=== PATIENT | male | born 1935 | race Caucasian/White ===

== ENCOUNTER 2016-12-20 11:18 | Emergency (ER) | payer MEDICARE, BC ==
[2016-12-20] MEDS ORDERED: SODIUM CHLORIDE 0.9% 1,000 ML IV ONE (12:25)
--- NOTE | 2016-12-20 12:30 | ED ---
General Adult HPI - General Chief complaint: Altered Mental Status Stated complaint: low blood pressure Time Seen by Provider: 12/20/16 12:07 Source: patient, family, RN notes reviewed Mode of arrival: wheelchair Limitations: altered mental status - History of Present Illness Initial comments: Patient is a pleasant 81-year-old male presenting with family with concerns for generalized weakness and confusion. Patient has some dementia however is more confused lately and does not notice family members at times. Patient has been somewhat weak all over. Patient has urinary urgency with limited output. Patient did see the doctor earlier today and had blood pressure 80/66 and was advised to come to the hospital. Patient has no specific complaints. Majority of history is taken from [employer]. - Related Data Home Medications Medication Instructions Recorded Confirmed Naproxen Sodium [Aleve] 220 - 440 mg PO BID PRN 12/20/16 12/20/16 Allergies Allergy/AdvReac Type Severity Reaction Status Date / Time No Known Allergies Allergy Verified 12/20/16 12:31 Review of Systems ROS Statement: Those systems with pertinent positive or pertinent negative responses have been documented in the HPI. ROS Other: All systems not noted in ROS Statement are negative. Constitutional: Denies: fever Eyes: Denies: eye pain ENT: Denies: ear pain Respiratory: Denies: cough Cardiovascular: Denies: chest pain Endocrine: Denies: fatigue Gastrointestinal: Denies: abdominal pain Genitourinary: Reports: urgency Musculoskeletal: Denies: back pain Skin: Denies: rash Neurological: Reports: weakness, confusion Past Medical History Past Medical History: Dementia, Osteoarthritis (OA) Additional Past Medical History / Comment(s): back pain History of Any Multi-Drug Resistant Organisms: None Reported Past Surgical History: Unable to Obtain Past Psychological History: No Psychological Hx Reported Smoking Status: Former smoker Past Alcohol Use History: None Reported Past Drug Use History: None Reported General Exam Limitations: altered mental status General appearance: alert, in no apparent distress Head exam: Present: atraumatic Eye exam: Present: normal appearance, PERRL, EOMI. Absent: nystagmus ENT exam: Present: normal oropharynx Neck exam: Present: normal inspection Respiratory exam: Present: normal lung sounds bilaterally Cardiovascular Exam: Present: regular rate, normal rhythm GI/Abdominal exam: Present: soft. Absent: tenderness Extremities exam: Present: normal inspection. Absent: pedal edema, calf tenderness Neurological exam: Present: alert, CN II-XII intact. Absent: motor sensory deficit Expanded Patient oriented to: Present: person, place (Patient he is in the hospital however unable to state which one or where). Absent: time Cranial nerves: EOM's Intact: Normal Sensory exam: Upper Extremity Light Touch: Normal, Lower Extremity Light Touch: Normal Motor strength exam: RUE: 5, LUE: 5, RLE: 5, LLE: 5 Psychiatric exam: Present: normal affect, normal mood Skin exam: Present: normal color Course Vital Signs 12/20/16 12/20/16 12/20/16 11:19 12:08 13:15 Temperature 99.2 F 97.8 F Pulse Rate 68 67 70 Respiratory 14 16 16 Rate Blood Pressure 128/73 149/88 O2 Sat by Pulse 96 100 100 Oximetry 12/20/16 14:22 Temperature 98.2 F Pulse Rate 93 Respiratory 16 Rate Blood Pressure 149/97 O2 Sat by Pulse 98 Oximetry EKG Findings - EKG Comments: EKG Findings:: Normal sinus rhythm 67. CO 180. QRS 1:30. QT 426. QTc 450. Normal axis. Right bundle branch block. No acute ST change. Medical Decision Making - Medical Decision Making Patient reevaluated and resting comfortably in bed. Patient requests discharge home. Family is made aware of results. Family is also made aware of x-ray results and need for follow-up for this. Family is comfortable with discharge home. - Lab Data Result diagrams: 12/20/16 12:05 12/20/16 12:05 Lab Results 12/20/16 12/20/16 12/20/16 Range/Units 12:05 12:05 12:05 WBC 5.1 (3.8-10.6) k/uL RBC 3.89 L (4.30-5.90) m/uL Hgb 11.8 L (13.0-17.5) gm/dL Hct 36.7 L (39.0-53.0) % MCV 94.5 (80.0-100.0) fL MCH 30.5 (25.0-35.0) pg MCHC 32.2 (31.0-37.0) g/dL RDW 14.0 (11.5-15.5) % Plt Count 152 (150-450) k/uL Neutrophils % 72 % Lymphocytes % 17 % Monocytes % 7 % Eosinophils % 2 % Basophils % 1 % Neutrophils # 3.6 (1.3-7.7) k/uL Lymphocytes # 0.9 L (1.0-4.8) k/uL Monocytes # 0.3 (0-1.0) k/uL Eosinophils # 0.1 (0-0.7) k/uL Basophils # 0.0 (0-0.2) k/uL PT (9.0-12.0) sec INR (<1.1) APTT (22.0-30.0) sec Sodium 141 (137-145) mmol/L Potassium 4.8 (3.5-5.1) mmol/L Chloride 109 H (98-107) mmol/L Carbon Dioxide 25 (22-30) mmol/L Anion Gap 7 mmol/L BUN 30 H (9-20) mg/dL Creatinine 1.49 H (0.66-1.25) mg/dL Est GFR (MDRD) Af Amer 55 (>60 ml/min/1.73 sqM) Est GFR (MDRD) Non-Af 45 (>60 ml/min/1.73 sqM) Glucose 82 (74-99) mg/dL Calcium 9.0 (8.4-10.2) mg/dL Total Bilirubin 0.6 (0.2-1.3) mg/dL AST 15 L (17-59) U/L ALT 24 (21-72) U/L Alkaline Phosphatase 68 (38-126) U/L Total Creatine Kinase 31 L (55-170) U/L CK-MB (CK-2) 0.4 (0.0-2.4) ng/mL CK-MB (CK-2) Rel Index 1.3 Troponin I <0.012 (0.000-0.034) ng/mL Total Protein 6.4 (6.3-8.2) g/dL Albumin 3.8 (3.5-5.0) g/dL Urine Color Urine Appearance (Clear) Urine pH (5.0-8.0) Ur Specific [place] (1.001-1.035) Urine Protein (Negative) Urine Glucose (UA) (Negative) Urine Ketones (Negative) Urine Blood (Negative) Urine Nitrite (Negative) Urine Bilirubin (Negative) Urine Urobilinogen (<2.0) mg/dL Ur Leukocyte Esterase (Negative) Urine Opiates Screen (NotDetected) Ur Oxycodone Screen (NotDetected) Urine Methadone Screen (NotDetected) Ur Propoxyphene Screen (NotDetected) Ur Barbiturates Screen (NotDetected) U Tricyclic Antidepress (NotDetected) Ur Phencyclidine Scrn (NotDetected) Ur Amphetamines Screen (NotDetected) U Methamphetamines Scrn (NotDetected) U Benzodiazepines Scrn (NotDetected) Urine Cocaine Screen (NotDetected) U Marijuana (THC) Screen (NotDetected) 12/20/16 12/20/16 Range/Units 12:05 14:16 WBC (3.8-10.6) k/uL RBC (4.30-5.90) m/uL Hgb (13.0-17.5) gm/dL Hct (39.0-53.0) % MCV (80.0-100.0) fL MCH (25.0-35.0) pg MCHC (31.0-37.0) g/dL RDW (11.5-15.5) % Plt Count (150-450) k/uL Neutrophils % % Lymphocytes % % Monocytes % % Eosinophils % % Basophils % % Neutrophils # (1.3-7.7) k/uL Lymphocytes # (1.0-4.8) k/uL Monocytes # (0-1.0) k/uL Eosinophils # (0-0.7) k/uL Basophils # (0-0.2) k/uL PT 10.0 (9.0-12.0) sec INR 1.0 (<1.1) APTT 21.0 L (22.0-30.0) sec Sodium (137-145) mmol/L Potassium (3.5-5.1) mmol/L Chloride (98-107) mmol/L Carbon Dioxide (22-30) mmol/L Anion Gap mmol/L BUN (9-20) mg/dL Creatinine (0.66-1.25) mg/dL Est GFR (MDRD) Af Amer (>60 ml/min/1.73 sqM) Est GFR (MDRD) Non-Af (>60 ml/min/1.73 sqM) Glucose (74-99) mg/dL Calcium (8.4-10.2) mg/dL Total Bilirubin (0.2-1.3) mg/dL AST (17-59) U/L ALT (21-72) U/L Alkaline Phosphatase (38-126) U/L Total Creatine Kinase (55-170) U/L CK-MB (CK-2) (0.0-2.4) ng/mL CK-MB (CK-2) Rel Index Troponin I (0.000-0.034) ng/mL Total Protein (6.3-8.2) g/dL Albumin (3.5-5.0) g/dL Urine Color Yellow Urine Appearance Clear (Clear) Urine pH 6.5 (5.0-8.0) Ur Specific [place] 1.015 (1.001-1.035) Urine Protein Trace H (Negative) Urine Glucose (UA) Negative (Negative) Urine Ketones Negative (Negative) Urine Blood Negative (Negative) Urine Nitrite Negative (Negative) Urine Bilirubin Negative (Negative) Urine Urobilinogen <2.0 (<2.0) mg/dL Ur Leukocyte Esterase Negative (Negative) Urine Opiates Screen Not Detected (NotDetected) Ur Oxycodone Screen Not Detected (NotDetected) Urine Methadone Screen Not Detected (NotDetected) Ur Propoxyphene Screen Not Detected (NotDetected) Ur Barbiturates Screen Not Detected (NotDetected) U Tricyclic Antidepress Not Detected (NotDetected) Ur Phencyclidine Scrn Not Detected (NotDetected) Ur Amphetamines Screen Not Detected (NotDetected) U Methamphetamines Scrn Not Detected (NotDetected) U Benzodiazepines Scrn Not Detected (NotDetected) Urine Cocaine Screen Not Detected (NotDetected) U Marijuana (THC) Screen Not Detected (NotDetected) - Radiology Data Radiology results: report reviewed (Computed tomography scan of the brain shows no acute process. Age-related atrophy and chronic small vessel ischemia.), image reviewed (Chest x-ray shows cardiac megaly. Chronic thickening right paratracheal stripe recommend nonemergent ultrasound or CT.) Disposition Clinical Impression: Altered mental status Disposition: HOME SELF-CARE Condition: Stable Instructions: Altered Mental Status (ED) Additional Instructions: Please do follow-up with primary care physician in the next day or 2 for recheck. Return for further change in mental status or weakness, fevers, worsening symptoms or other concerns. Referrals: Thad Romo MD [Primary Care Provider] - 1-2 days
[2016-12-20 13:25] LABS: Basophils % (A) 1 %; CH 30.6; CHCM 32.6; Eosinophils # (A) 0.1 k/uL (0-0.7); Eosinophils % (A) 2 %; HCT 36.7 % (39.0-53.0); HGB 11.8 gm/dL (13.0-17.5); Luc # (Auto) 0.09; Luc % (Auto) 2; Lymphocytes # (A) 0.9 k/uL (1.0-4.8); Lymphocytes % (A) 17 %; MCH 30.5 pg (25.0-35.0); MCHC 32.2 g/dL (31.0-37.0); MCV 94.5 fL (80.0-100.0); Mean Platelet Volume 9.5; Monocytes # (A) 0.3 k/uL (0-1.0); Monocytes % (A) 7 %; Neutrophils # (A) 3.6 k/uL (1.3-7.7); Neutrophils % (A) 72 %; RBC 3.89 m/uL (4.30-5.90); WBC 5.1 k/uL (3.8-10.6); WBC (Perox) 5.34
[2016-12-20 13:37] LABS: Potassium 4.8 mmol/L (3.5-5.1); Total Bilirubin 0.6 mg/dL (0.2-1.3); Total Protein 6.4 g/dL (6.3-8.2)
[2016-12-20 13:46] LABS: Creatine Kinase 31 U/L (55-170)
--- NOTE | 2016-12-20 13:52 | CT ---
EXAMINATION TYPE: CT brain wo con DATE OF EXAM: 12/20/2016 COMPARISON: NONE HISTORY: Altered mental status CT DLP: 1072.3 mGycm Automated exposure control for dose reduction was used. FINDINGS: There is no acute intracranial hemorrhage, mass effect, or midline shift identified. The ventricles and sulci are within normal limits in size. There is cortical atrophy present. Cerebral vascular calc ifications are present. Periventricular white matter shows patchy low attenuation. The globes are in tact and the visualized sinuses are showing inflammatory change in the ethmoid air cells, sphenoid si nus. IMPRESSION: No acute intracranial hemorrhage, mass effect, or midline shift is seen. Age-related atrophy and prob able chronic small vessel ischemia. Mild sinus disease.
--- NOTE | 2016-12-20 13:56 | XR ---
EXAMINATION TYPE: XR chest 2V DATE OF EXAM: 12/20/2016 COMPARISON: CT abdomen and pelvis October 21, 2014 HISTORY: Altered mental status per order. TECHNIQUE: Frontal and lateral views of the chest are obtained. FINDINGS: Lung volumes are present. Chronic parenchymal change is suspected. Thickening of right para tracheal stripe is noted. There is no focal air space opacity, pleural effusion, or pneumothorax see n. The cardiac silhouette size is mildly enlarged with ectatic thoracic aorta. The osseous structu res are demineralized. There is severe compression type fracture deformity in the upper lumbar spine. This is unchanged from abdominal CT October 21, 2014 at L1 level. IMPRESSION: 1. Cardiomegaly and chronic parenchymal change is suspected without acute pulmonary process. 2. Chronic thickening right paratracheal stripe may reflect prominent fat pad, prominent azygos lobe/ fissure, or thyroid goiter, other etiologies are not excluded. Consider nonemergent ultrasound or CT follow-up.
[2016-12-20 13:58] LABS: Creatine Kinase MB 0.4 ng/mL (0.0-2.4); Troponin I <0.012 ng/mL (0.000-0.034)
[2016-12-20 14:21] LABS: Appearance,Urine Clear (Clear); Bilirubin,Urine Negative (Negative); Glucose,Urine (UA) Negative (Negative); Ketones,Urine Negative (Negative); Leukocyte Esterase,Urine Negative (Negative); Nitrite,Urine Negative (Negative); PH, Urine 6.5 (5.0-8.0); Protein,Urine Trace (Negative); Specific Gravity,Urine 1.015 (1.001-1.035); UA Billing (MACRO vs. MICRO) CHEM; Urobilinogen,Urine <2.0 mg/dL (<2.0)
[2016-12-20 17:45] VITALS: BP 133/95; PULSE 72; RESP 16; TEMP 97
== END 2016-12-20 17:46 | disposition home or self-care (01) ==
LOC: EC 11:18
DX: R41.82 Altered mental status, unspecified (principal); R53.1 Weakness; R03.1 Nonspecific low blood-pressure reading; Z87.891 Personal history of nicotine dependence
CPT/HCPCS: 36415; 51798; 70450; 71020; 80053; 80306; 81003; 82550; 82553; 84484; 85025; 85610; 85730; 93005; 99285

== ENCOUNTER 2017-01-11 13:50 | Inpatient (IN) | payer MEDICARE, BC ==
[2017-01-11] MEDS ORDERED: SODIUM CHLORIDE 0.9% 1,000 ML IV ONE (14:01)
--- NOTE | 2017-01-11 14:07 | ED ---
Altered Mental Status HPI - General Chief Complaint: Altered Mental Status Stated Complaint: altered mental Time Seen by Provider: 01/11/17 13:50 Source: patient, EMS, RN notes reviewed Mode of arrival: EMS Limitations: altered mental status - History of Present Illness Initial Comments: This 81-year-old male was brought in by EMS for evaluation of altered mental status. Patient was found upon awaking earlier today to be confused is normally awake alert oriented 4 hours only alert and oriented 1. No reports of fever no reports of trauma he has a cough or phlegm possibly green colored. No new medications. MD Complaint: altered mental status - Related Data Home Medications Medication Instructions Recorded Confirmed Naproxen Sodium [Aleve] 440 - 660 mg PO BID PRN 12/20/16 01/11/17 Allergies Allergy/AdvReac Type Severity Reaction Status Date / Time No Known Allergies Allergy Verified 12/20/16 12:31 Review of Systems ROS Statement: Those systems with pertinent positive or pertinent negative responses have been documented in the HPI. ROS Other: All systems not noted in ROS Statement are negative. Past Medical History Past Medical History: Dementia, Osteoarthritis (OA) Additional Past Medical History / Comment(s): back pain History of Any Multi-Drug Resistant Organisms: None Reported Past Surgical History: Unable to Obtain Past Psychological History: No Psychological Hx Reported Smoking Status: Former smoker Past Alcohol Use History: None Reported Past Drug Use History: None Reported General Exam - General Exam Comments Initial Comments: This is a well-developed well-nourished awake alert but confused male Limitations: altered mental status General appearance: alert, lethargic Head exam: Present: atraumatic, normocephalic, normal inspection Eye exam: Present: normal appearance, PERRL, EOMI. Absent: scleral icterus, conjunctival injection, periorbital swelling ENT exam: Present: mucous membranes dry Neck exam: Present: normal inspection. Absent: tenderness, meningismus, lymphadenopathy Respiratory exam: Present: normal lung sounds bilaterally. Absent: respiratory distress, wheezes, rales, rhonchi, stridor Cardiovascular Exam: Present: regular rate, normal rhythm, normal heart sounds. Absent: systolic murmur, diastolic murmur, rubs, gallop, clicks GI/Abdominal exam: Present: soft, normal bowel sounds. Absent: distended, tenderness, guarding, rebound, rigid Extremities exam: Present: normal inspection, full ROM, normal capillary refill. Absent: tenderness, pedal edema, joint swelling, calf tenderness Back exam: Present: normal inspection Neurological exam: Present: alert, altered, CN II-XII intact Psychiatric exam: Present: flat affect Skin exam: Present: warm, dry, intact, normal color. Absent: rash Course Vital Signs 01/11/17 13:57 Temperature 97.1 F L Pulse Rate 78 Respiratory 18 Rate Blood Pressure 170/110 O2 Sat by Pulse 97 Oximetry - Reevaluation(s) Reevaluation #1: 01/11/17 16:10 I did discuss the findings with the caregiver and a niece. Patient has been coughing up green phlegm he is less responsive than usual per the caregiver. Medical Decision Making - Medical Decision Making I did discuss findings with the patient's caregiver and knees. Patient will be admitted for evaluation of altered mental status he does demonstrate evidence of bronchitis dehydration. - Lab Data Result diagrams: 01/11/17 14:16 01/11/17 14:16 Lab Results 01/11/17 01/11/17 01/11/17 Range/Units 14:08 14:16 14:16 WBC (3.8-10.6) k/uL RBC (4.30-5.90) m/uL Hgb (13.0-17.5) gm/dL Hct (39.0-53.0) % MCV (80.0-100.0) fL MCH (25.0-35.0) pg MCHC (31.0-37.0) g/dL RDW (11.5-15.5) % Plt Count (150-450) k/uL Neutrophils % % Lymphocytes % % Monocytes % % Eosinophils % % Basophils % % Neutrophils # (1.3-7.7) k/uL Lymphocytes # (1.0-4.8) k/uL Monocytes # (0-1.0) k/uL Eosinophils # (0-0.7) k/uL Basophils # (0-0.2) k/uL PT (9.0-12.0) sec INR (<1.1) APTT (22.0-30.0) sec Sodium (137-145) mmol/L Potassium (3.5-5.1) mmol/L Chloride (98-107) mmol/L Carbon Dioxide (22-30) mmol/L Anion Gap mmol/L BUN (9-20) mg/dL Creatinine (0.66-1.25) mg/dL Est GFR (MDRD) Af Amer (>60 ml/min/1.73 sqM) Est GFR (MDRD) Non-Af (>60 ml/min/1.73 sqM) Glucose (74-99) mg/dL POC Glucose (mg/dL) 84 (75-99) mg/dL POC Glu [employer] ID Chanelle Barone Plasma Lactic Acid Miguel Angel 1.9 (0.7-2.0) mmol/L Calcium (8.4-10.2) mg/dL Magnesium (1.6-2.3) mg/dL Total Bilirubin (0.2-1.3) mg/dL AST (17-59) U/L ALT (21-72) U/L Alkaline Phosphatase (38-126) U/L Ammonia <9 (<30) umol/L Total Creatine Kinase 121 (55-170) U/L CK-MB (CK-2) 1.2 (0.0-2.4) ng/mL CK-MB (CK-2) Rel Index 1.0 Troponin I <0.012 (0.000-0.034) ng/mL Total Protein (6.3-8.2) g/dL Albumin (3.5-5.0) g/dL Urine Color Urine Appearance (Clear) Urine pH (5.0-8.0) Ur Specific [place] (1.001-1.035) Urine Protein (Negative) Urine Glucose (UA) (Negative) Urine Ketones (Negative) Urine Blood (Negative) Urine Nitrite (Negative) Urine Bilirubin (Negative) Urine Urobilinogen (<2.0) mg/dL Ur Leukocyte Esterase (Negative) Urine RBC (0-5) /hpf Urine WBC (0-5) /hpf Amorphous Sediment (None) /hpf Hyaline Casts (0-2) /lpf Urine Mucus (None) /hpf Urine Opiates Screen (NotDetected) Ur Oxycodone Screen (NotDetected) Urine Methadone Screen (NotDetected) Ur Propoxyphene Screen (NotDetected) Ur Barbiturates Screen (NotDetected) U Tricyclic Antidepress (NotDetected) Ur Phencyclidine Scrn (NotDetected) Ur Amphetamines Screen (NotDetected) U Methamphetamines Scrn (NotDetected) U Benzodiazepines Scrn (NotDetected) Urine Cocaine Screen (NotDetected) U Marijuana (THC) Screen (NotDetected) 01/11/17 01/11/17 01/11/17 Range/Units 14:16 14:16 14:16 WBC 6.3 (3.8-10.6) k/uL RBC 4.12 L (4.30-5.90) m/uL Hgb 12.4 L (13.0-17.5) gm/dL Hct 38.1 L (39.0-53.0) % MCV 92.4 (80.0-100.0) fL MCH 30.1 (25.0-35.0) pg MCHC 32.6 (31.0-37.0) g/dL RDW 14.0 (11.5-15.5) % Plt Count 177 (150-450) k/uL Neutrophils % 75 % Lymphocytes % 15 % Monocytes % 7 % Eosinophils % 2 % Basophils % 1 % Neutrophils # 4.7 (1.3-7.7) k/uL Lymphocytes # 0.9 L (1.0-4.8) k/uL Monocytes # 0.4 (0-1.0) k/uL Eosinophils # 0.1 (0-0.7) k/uL Basophils # 0.0 (0-0.2) k/uL PT 10.3 (9.0-12.0) sec INR 1.0 (<1.1) APTT 22.2 (22.0-30.0) sec Sodium 142 (137-145) mmol/L Potassium 4.8 (3.5-5.1) mmol/L Chloride 110 H (98-107) mmol/L Carbon Dioxide 21 L (22-30) mmol/L Anion Gap 11 mmol/L BUN 29 H (9-20) mg/dL Creatinine 1.20 (0.66-1.25) mg/dL Est GFR (MDRD) Af Amer >60 (>60 ml/min/1.73 sqM) Est GFR (MDRD) Non-Af 58 (>60 ml/min/1.73 sqM) Glucose 99 (74-99) mg/dL POC Glucose (mg/dL) (75-99) mg/dL POC Glu [employer] ID Plasma Lactic Acid [place] (0.7-2.0) mmol/L Calcium 8.9 (8.4-10.2) mg/dL Magnesium 2.4 H (1.6-2.3) mg/dL Total Bilirubin 0.8 (0.2-1.3) mg/dL AST 23 (17-59) U/L ALT 32 (21-72) U/L Alkaline Phosphatase 82 (38-126) U/L Ammonia (<30) umol/L Total Creatine Kinase (55-170) U/L CK-MB (CK-2) (0.0-2.4) ng/mL CK-MB (CK-2) Rel Index Troponin I (0.000-0.034) ng/mL Total Protein 6.2 L (6.3-8.2) g/dL Albumin 3.7 (3.5-5.0) g/dL Urine Color Urine Appearance (Clear) Urine pH (5.0-8.0) Ur Specific [place] (1.001-1.035) Urine Protein (Negative) Urine Glucose (UA) (Negative) Urine Ketones (Negative) Urine Blood (Negative) Urine Nitrite (Negative) Urine Bilirubin (Negative) Urine Urobilinogen (<2.0) mg/dL Ur Leukocyte Esterase (Negative) Urine RBC (0-5) /hpf Urine WBC (0-5) /hpf Amorphous Sediment (None) /hpf Hyaline Casts (0-2) /lpf Urine Mucus (None) /hpf Urine Opiates Screen (NotDetected) Ur Oxycodone Screen (NotDetected) Urine Methadone Screen (NotDetected) Ur Propoxyphene Screen (NotDetected) Ur Barbiturates Screen (NotDetected) U Tricyclic Antidepress (NotDetected) Ur Phencyclidine Scrn (NotDetected) Ur Amphetamines Screen (NotDetected) U Methamphetamines Scrn (NotDetected) U Benzodiazepines Scrn (NotDetected) Urine Cocaine Screen (NotDetected) U Marijuana (THC) Screen (NotDetected) 01/11/17 Range/Units 15:04 WBC (3.8-10.6) k/uL RBC (4.30-5.90) m/uL Hgb (13.0-17.5) gm/dL Hct (39.0-53.0) % MCV (80.0-100.0) fL MCH (25.0-35.0) pg MCHC (31.0-37.0) g/dL RDW (11.5-15.5) % Plt Count (150-450) k/uL Neutrophils % % Lymphocytes % % Monocytes % % Eosinophils % % Basophils % % Neutrophils # (1.3-7.7) k/uL Lymphocytes # (1.0-4.8) k/uL Monocytes # (0-1.0) k/uL Eosinophils # (0-0.7) k/uL Basophils # (0-0.2) k/uL PT (9.0-12.0) sec INR (<1.1) APTT (22.0-30.0) sec Sodium (137-145) mmol/L Potassium (3.5-5.1) mmol/L Chloride (98-107) mmol/L Carbon Dioxide (22-30) mmol/L Anion Gap mmol/L BUN (9-20) mg/dL Creatinine (0.66-1.25) mg/dL Est GFR (MDRD) Af Amer (>60 ml/min/1.73 sqM) Est GFR (MDRD) Non-Af (>60 ml/min/1.73 sqM) Glucose (74-99) mg/dL POC Glucose (mg/dL) (75-99) mg/dL POC Glu [employer] Operator ID Plasma Lactic Acid [place] (0.7-2.0) mmol/L Calcium (8.4-10.2) mg/dL Magnesium (1.6-2.3) mg/dL Total Bilirubin (0.2-1.3) mg/dL AST (17-59) U/L ALT (21-72) U/L Alkaline Phosphatase (38-126) U/L Ammonia (<30) umol/L Total Creatine Kinase (55-170) U/L CK-MB (CK-2) (0.0-2.4) ng/mL CK-MB (CK-2) Rel Index Troponin I (0.000-0.034) ng/mL Total Protein (6.3-8.2) g/dL Albumin (3.5-5.0) g/dL Urine Color Yellow Urine Appearance Clear (Clear) Urine pH 5.5 (5.0-8.0) Ur Specific [place] 1.022 (1.001-1.035) Urine Protein 1+ H (Negative) Urine Glucose (UA) Negative (Negative) Urine Ketones 1+ H (Negative) Urine Blood Trace H (Negative) Urine Nitrite Negative (Negative) Urine Bilirubin Negative (Negative) Urine Urobilinogen 2.0 (<2.0) mg/dL Ur Leukocyte Esterase Negative (Negative) Urine RBC 5 (0-5) /hpf Urine WBC 2 (0-5) /hpf Amorphous Sediment Rare H (None) /hpf Hyaline Casts 3 H (0-2) /lpf Urine Mucus Rare H (None) /hpf Urine Opiates Screen Not Detected (NotDetected) Ur Oxycodone Screen Not Detected (NotDetected) Urine Methadone Screen Not Detected (NotDetected) Ur Propoxyphene Screen Not Detected (NotDetected) Ur Barbiturates Screen Not Detected (NotDetected) U Tricyclic Antidepress Not Detected (NotDetected) Ur Phencyclidine Scrn Not Detected (NotDetected) Ur Amphetamines Screen Not Detected (NotDetected) U Methamphetamines Scrn Not Detected (NotDetected) U Benzodiazepines Scrn Not Detected (NotDetected) Urine Cocaine Screen Not Detected (NotDetected) U Marijuana (THC) Screen Not Detected (NotDetected) - EKG Data -: EKG Interpreted by Mo EKG shows normal: sinus rhythm (Sinus rhythm rate is 77 SD interval of 144 QRS 126 daily since QTC of 426/42 right bundle-branch block pattern no acute ST-T wave changes.) - Radiology Data Radiology results: report reviewed (I did review the imaging and reports no acute findings.), image reviewed Disposition Clinical Impression: Altered mental status, Delirium due to general medical condition, Pneumonitis, Bronchitis, Dehydration Disposition: ADMITTED IP TO THIS [facility] Condition: Stable Referrals: Thad Romo MD [Primary Care Provider] - 1-2 days
[2017-01-11 14:08] LABS: Glucose,Whole Blood 84 mg/dL (75-99)
[2017-01-11 14:37] LABS: Basophils % (A) 1 %; CH 30.5; CHCM 33.2; Eosinophils # (A) 0.1 k/uL (0-0.7); Eosinophils % (A) 2 %; HCT 38.1 % (39.0-53.0); HDW 2.63; HGB 12.4 gm/dL (13.0-17.5); Luc # (Auto) 0.13; Luc % (Auto) 2; Lymphocytes # (A) 0.9 k/uL (1.0-4.8); Lymphocytes % (A) 15 %; MCH 30.1 pg (25.0-35.0); MCHC 32.6 g/dL (31.0-37.0); MCV 92.4 fL (80.0-100.0); Mean Platelet Volume 9.8; Monocytes # (A) 0.4 k/uL (0-1.0); Monocytes % (A) 7 %; Neutrophils # (A) 4.7 k/uL (1.3-7.7); Neutrophils % (A) 75 %; RBC 4.12 m/uL (4.30-5.90); WBC 6.3 k/uL (3.8-10.6)
--- NOTE | 2017-01-11 14:39 | CT ---
EXAMINATION TYPE: CT brain wo con DATE OF EXAM: 01/11/2017 COMPARISON: 12/20/16 HISTORY: Pain CT DLP: 1145.[address] of the brain was performed. The ventricles, basal cisterns and sulci overlying the cerebral convexities demonstrate moderate enla rgement. There is no evidence for intracranial hemorrhage or sulcal effacement. There is decreased attenuation about the periventricular white matter and deep white matter of both c erebral hemispheres, compatible with chronic small vessel ischemia. Differential diagnosis does inclu de demyelination. No mass effects are seen.No midline shift. Osseous calvarium is intact. Chronic sinusitis. If symptoms persist consider MRI. IMPRESSION: 1. Age related atrophic and chronic small vessel ischemic change without acute intracranial process s een at this time.
[2017-01-11 14:46] LABS: ALT 32 U/L (21-72); AST 23 U/L (17-59); Alkaline Phosphatase 82 U/L (38-126); Anion Gap 11 mmol/L; Blood Urea Nitrogen 29 mg/dL (9-20); Calcium 8.9 mg/dL (8.4-10.2); Carbon Dioxide 21 mmol/L (22-30); Chloride 110 mmol/L (98-107); Glucose 99 mg/dL (74-99); Magnesium 2.4 mg/dL (1.6-2.3); Non-African American GFR(MDRD) 58 (>60 ml/min/1.73 sqM); Partial Thromboplastin Time 22.2 sec (22.0-30.0); Potassium 4.8 mmol/L (3.5-5.1); Prothrombin Time 10.3 sec (9.0-12.0); Sodium 142 mmol/L (137-145); Total Bilirubin 0.8 mg/dL (0.2-1.3); Total Protein 6.2 g/dL (6.3-8.2)
[2017-01-11 14:55] LABS: Creatine Kinase 121 U/L (55-170)
[2017-01-11 14:57] LABS: Ammonia <9 umol/L (<30)
[2017-01-11 15:08] LABS: Creatine Kinase MB 1.2 ng/mL (0.0-2.4); Troponin I <0.012 ng/mL (0.000-0.034)
--- NOTE | 2017-01-11 15:10 | XR ---
EXAMINATION TYPE: XR chest 2V DATE OF EXAM: 01/11/2017 COMPARISON: 12/20/2016 HISTORY: Shortness of breath TECHNIQUE: Frontal and lateral views of the chest are obtained. FINDINGS: Scattered senescent parenchymal changes noted. Hyperinflation compatible with COPD. No evidence for infiltrate. No evidence for atelectasis. Heart size is stable. Mediastinal structures are stable and grossly unremarkable. No evidence for hilar prominence. Degenerative changes dorsal spine. IMPRESSION: 1. No evidence for acute pulmonary disease.
[2017-01-11 15:18] LABS: Amorphous Sediment,Urine Rare /hpf; Appearance,Urine Clear (Clear); Bilirubin,Urine Negative (Negative); Glucose,Urine (UA) Negative (Negative); Ketones,Urine 1+ (Negative); Leukocyte Esterase,Urine Negative (Negative); Mucus,Urine Rare /hpf; Nitrite,Urine Negative (Negative); PH, Urine 5.5 (5.0-8.0); Particle Count 3738; Protein,Urine 1+ (Negative); RBC,Urine 5 /hpf (0-5); Specific Gravity,Urine 1.022 (1.001-1.035); UA Billing (MACRO vs. MICRO) MICRO; WBC,Urine 2 /hpf (0-5)
[2017-01-11] MEDS ORDERED: LEVOFLOXACIN 750MG-D5W PMX 750 MG in DEXTROSE/WATER 1 150ML.BAG IVPB STA (16:16)
[2017-01-11] MEDS ORDERED: KETOROLAC 30 MG/ML 1 ML VIAL IVP STA (16:59)
[2017-01-11] MEDS: SODIUM CHLORIDE 0.9% 1,000 ML IV SCH (17:04)
--- NOTE | 2017-01-11 17:24 | US ---
EXAMINATION TYPE: US carotid duplex BILAT DATE OF EXAM: 01/11/2017 COMPARISON: NONE CLINICAL HISTORY: Stenosis. Altered mental status EXAM MEASUREMENTS: RIGHT: Peak Systolic Velocity (PSV) cm/sec ----- Right CCA: 60.8 ----- Right ICA: 73.0 ----- Right ECA: 72.1 ICA/CCA ratio: 1.2 RIGHT: End Diastole cm/sec ----- Right CCA: 17.1 ----- Right ICA: 28.5 ----- Right ECA: 10.1 LEFT: Peak Systolic Velocity (PSV) cm/sec ----- Left CCA: 90.5 ----- Left ICA: 59.0 ----- Left ECA: 84.3 ICA/CCA ratio: 0.7 LEFT: End Diastole cm/sec ----- Left CCA: 30.6 ----- Left ICA: 22.3 ----- Left ECA: 13.9 VERTEBRALS (direction of flow): Right Vertebral: Antegrade Left Vertebral: Antegrade Mild plaque noted bilateral bifurcations. No evidence of increased velocities. No significant stenosi s IMPRESSION: There is antegrade flow in the vertebral arteries. The images and measurements suggest 1 0-20% stenosis in both internal carotid arteries. Criteria for Assigning % of Stenosis / Diameter reduction (Estimation based on the indirect measurements of the internal carotid artery velocities (ICA PSV). 1. Normal (no stenosis)=ICA PSV < 125 cm/s: ratio < 2.0: ICA EDV<40 cm/s. 2. Less than 50% stenosis=ICA PSV < 125 cm/s: ratio < 2.0: ICA EDV<40 cm/s. 3. 50 to 69% stenosis=ICA PSV of 125 to 230 cm/s: ration 2.0 ? 4.0: ICA EDV 40-100 cm/s. 4. Greater than 70% stenosis to near occlusion= ICA PSV > 230 cm/s: ratio > 4.0: ICA EDV > 100 cm/s. 5. Near occlusion= ICA PSV velocities may be low or undetectable: variable ratio and ICA EDV. 6. Total occlusion=unable to detect flow.
--- NOTE | 2017-01-11 20:21 | P.CNNES ---
History of Present Illness Consult date: 01/11/17 History of Present Illness: The patient is an 81-year-old man who was brought to the emergency room because of change in mental status. Apparently the patient is normally alert and oriented but he was found to be very confused this morning. He does have a history of dementia. Emergency room he was found to have some bronchitis. Rarely had been coughing green phlegm. He was admitted to the hospital with altered mental status and neurology was requested to evaluate. Patient is confused but is awake enough to speak and follow some commands. Unable to give any coherent history. He is disoriented to place and situation. He had a CT of the brain in the emergency room which did not show any acute findings. Review of Systems ROS unobtainable: due to mental status Past Medical History Past Medical History: Dementia, Osteoarthritis (OA) Additional Past Medical History / Comment(s): back injury 10 years ago History of Any Multi-Drug Resistant Organisms: None Reported Past Surgical History: Unable to Obtain Past Anesthesia/Blood Transfusion Reactions: No Reported Reaction Past Psychological History: No Psychological Hx Reported Smoking Status: Never smoker Past Alcohol Use History: None Reported Past Drug Use History: None Reported - Past Family History Mother History Unknown: Yes Father History Unknown: Yes Medications and Allergies Home Medications Medication Instructions Recorded Confirmed Type Naproxen Sodium [Aleve] 440 - 660 mg PO BID PRN 12/20/16 01/11/17 History Allergies Allergy/AdvReac Type Severity Reaction Status Date / Time No Known Allergies Allergy Verified 12/20/16 12:31 Physical Examination - Vital Signs Vital Signs: Vital Signs Temp Pulse Pulse Resp BP BP Pulse Ox 01/11/17 17:44 97.6 F 76 16 148/92 98 01/11/17 17:10 97.6 F 76 16 148/92 98 01/11/17 16:57 96.8 F L 01/11/17 16:27 87 17 136/86 94 L 01/11/17 13:57 97.1 F L 78 18 170/110 97 Intake and Output 01/11/17 01/11/17 01/11/17 06:59 14:59 22:59 Output Total 30 Balance -30 Output: Urine 30 Straight 30 Other: Weight 74.843 kg 77 kg Patient Weight 01/12/17 06:59 Weight 77 kg - Constitutional General appearance: average body habitus - EENT EENT: PERRL, vision intact - Respiratory Respiratory: normal breath sounds - Cardiovascular Cardiovascular: regular rate - Neurologic Mental status he was awake he was alert he was oriented to person he thought at first he was at home and then he said he was in the hospital he did not know which hospital he could not name his home address he could not give his date. He was in a delirium. Results - Laboratory Findings CBC and BMP: 01/11/17 14:16 01/11/17 14:16 Abnormal Lab Findings: Abnormal Labs 01/11/17 01/11/17 01/11/17 14:16 14:16 15:04 RBC 4.12 L Hgb 12.4 L Hct 38.1 L Lymphocytes # 0.9 L Chloride 110 H Carbon Dioxide 21 L BUN 29 H Magnesium 2.4 H Total Protein 6.2 L Urine Protein 1+ H Urine Ketones 1+ H Urine Blood Trace H Amorphous Sediment Rare H Hyaline Casts 3 H Urine Mucus Rare H Assessment and Plan (1) Altered mental status Status: Acute Code(s): R41.82 - ALTERED MENTAL STATUS, UNSPECIFIED (2) Bronchitis Status: Acute Code(s): J40 - BRONCHITIS, NOT SPECIFIED ACUTE OR CHRONIC (3) Delirium due to general medical condition Status: Acute Code(s): F05 - DELIRIUM DUE TO KNOWN PHYSIOLOGICAL CONDITION (4) Dehydration Status: Acute Code(s): E86.0 - DEHYDRATION Plan: The patient is a 81-year-old man who was brought into the emergency room with confusion. He is oriented to person only. He is able to follow some simple commands but is generally confused and appears to be in a delirium. He is admitted to the hospital with bronchitis and dehydration. He had a CT of the brain which did not show any acute findings. He did not have any focal motor deficits on examination. There is questionable left facial droop. Recommend a stroke workup including carotid ultrasound and echocardiogram. Will also do an EEG.
[2017-01-12 03:39] LABS: Cholesterol 151 mg/dL (<200); HDL Cholesterol 40 mg/dL (40-60); Triglycerides 95 mg/dL (<150)
[2017-01-12] MEDS: ASPIRIN 325 MG TAB PO SCH (07:31)
[2017-01-12] MEDS: SODIUM CHLORIDE 0.9% 1,000 ML IV SCH ×2 (07:31→15:16)
--- NOTE | 2017-01-12 12:18 | ECHOF ---
Referral Reason:Altered mental status MEASUREMENTS -------- HEIGHT: 193.0 cm WEIGHT: 76.7 kg BP: 195/103 RVIDd: 2.9 cm (< 3.3) IVSd: 1.3 cm (0.6 - 1.1) LVIDd: 5.1 cm (3.9 - 5.3) LVPWd: 1.2 cm (0.6 - 1.1) IVSs: 2.0 cm LVIDs: 3.5 cm LVPWs: 1.9 cm LAESV Index (A-L): 19.26 ml/m Ao Diam: 3.7 cm (2.0 - 3.7) AV Cusp: 1.3 cm (1.5 - 2.6) LA Diam: 2.5 cm (2.7 - 3.8) MV EXCURSION: 12.842 mm (> 18.000) MV EF SLOPE: 75 mm/s (70 - 150) EPSS: 1.6 cm MV E Antelmo: 0.68 m/s MV DecT: 362 ms MV A Antelmo: 1.24 m/s MV E/A Ratio: 0.55 FINDINGS -------- Sinus rhythm. This was a technically adequate study. Pt. not compliant. There is mild concentric left ventricular hypertrophy. Overall left ventricular systolic function is normal with, an EF between 55 - 60 %. The right ventricle is normal in size and function. Normal LA size by volume 22+/-6 ml/m2. The right atrium is normal in size. Aortic valve is trileaflet and is mildly thickened. Trace amount of aortic regurgitation. There is no evidence of aortic stenosis. The mitral valve leaflets are mildly thickened. There is trace to mild mitral regurgitation. Trace tricuspid regurgitation present. There is no evidence of pulmonary hypertension. The right ventricular systolic pressure, as measured by Doppler, is {RVSP}. Trace/mild (physiologic) pulmonic regurgitation. The aortic root size is normal. Normal inferior vena cava with normal inspiratory collapse consistent with estimated right atrial pressure of 5 mmHg. The pericardium is normal. There is no pericardial effusion. CONCLUSIONS -------- 1. Sinus rhythm. 2. There is trace to mild mitral regurgitation. 3. Trace tricuspid regurgitation present. 4. There is no evidence of pulmonary hypertension. 5. The right ventricular systolic pressure, as measured by Doppler, is {RVSP}. 6. Trace/mild (physiologic) pulmonic regurgitation. 7. The aortic root size is normal. 8. There is no pericardial effusion. 9. This was a technically adequate study. 10. Pt. not compliant. 11. There is mild concentric left ventricular hypertrophy. 12. Overall left ventricular systolic function is normal with, an EF between 55 - 60 %. 13. Normal LA size by volume 22+/-6 ml/m2. 14. Aortic valve is trileaflet and is mildly thickened. 15. Trace amount of aortic regurgitation. 16. The mitral valve leaflets are mildly thickened. EQUIPMENT CLEANER AND TESTER: Senthil Lindsay RDCS
[2017-01-12] MEDS: amLODIPine 10 MG TAB PO SCH (15:16)
[2017-01-12] MEDS ORDERED: METOPROLOL TARTRATE 50 MG TAB PO STA (17:20)
[2017-01-12] MEDS: hydrALAZINE HCL 20 MG/ML 1 ML VIAL IVP PRN ×2 (17:39→23:56)
[2017-01-12] MEDS ORDERED: METOPROLOL TARTRATE 50 MG TAB PO SCH (21:00)
[2017-01-12] MEDS: SODIUM CHLORIDE 0.45% 1,000 ML IV SCH (23:28)
[2017-01-12] MEDS: LEVOFLOXACIN 500MG-D5W PMX 500 MG in DEXTROSE/WATER 1 100ML.BAG IVPB SCH (23:48)
[2017-01-12] MEDS: HEPARIN SODIUM,PORCINE 5,000 UNIT/ML 1 ML VIAL SQ SCH (23:51)
[2017-01-13 06:34] LABS: Basophils % (A) 0 %; CH 30.1; CHCM 32.9; Eosinophils # (A) 0.1 k/uL (0-0.7); Eosinophils % (A) 1 %; HCT 33.1 % (39.0-53.0); HDW 2.68; HGB 11.2 gm/dL (13.0-17.5); Luc # (Auto) 0.12; Luc % (Auto) 2; Lymphocytes # (A) 0.7 k/uL (1.0-4.8); Lymphocytes % (A) 12 %; MCH 31.1 pg (25.0-35.0); MCHC 33.9 g/dL (31.0-37.0); MCV 91.9 fL (80.0-100.0); Mean Platelet Volume 8.7; Monocytes # (A) 0.4 k/uL (0-1.0); Monocytes % (A) 6 %; Neutrophils # (A) 4.6 k/uL (1.3-7.7); Neutrophils % (A) 79 %; RBC 3.59 m/uL (4.30-5.90); WBC 5.9 k/uL (3.8-10.6); WBC (Perox) 6.11
[2017-01-13 07:00] LABS: Anion Gap 8 mmol/L; Blood Urea Nitrogen 17 mg/dL (9-20); Carbon Dioxide 20 mmol/L (22-30); Chloride 110 mmol/L (98-107); Glucose 94 mg/dL (74-99); Non-African American GFR(MDRD) >60 (>60 ml/min/1.73 sqM); Potassium 4.2 mmol/L (3.5-5.1); Sodium 138 mmol/L (137-145)
[2017-01-13] MEDS: ASPIRIN 325 MG TAB PO SCH (08:53)
[2017-01-13] MEDS: HEPARIN SODIUM,PORCINE 5,000 UNIT/ML 1 ML VIAL SQ SCH ×3 (08:53→23:20)
[2017-01-13] MEDS: amLODIPine 10 MG TAB PO SCH (11:45)
[2017-01-13] MEDS: SODIUM CHLORIDE 0.45% 1,000 ML IV SCH (16:10)
[2017-01-13] MEDS: LEVOFLOXACIN 500MG-D5W PMX 500 MG in DEXTROSE/WATER 1 100ML.BAG IVPB SCH (23:20)
[2017-01-14 06:48] LABS: Basophils % (A) 1 %; CH 30.2; Eosinophils # (A) 0.1 k/uL (0-0.7); Eosinophils % (A) 3 %; HCT 33.1 % (39.0-53.0); HDW 2.65; HGB 10.9 gm/dL (13.0-17.5); Luc # (Auto) 0.11; Luc % (Auto) 2; Lymphocytes # (A) 0.7 k/uL (1.0-4.8); Lymphocytes % (A) 13 %; MCH 30.1 pg (25.0-35.0); MCHC 32.8 g/dL (31.0-37.0); MCV 91.9 fL (80.0-100.0); Mean Platelet Volume 9.4; Monocytes # (A) 0.3 k/uL (0-1.0); Monocytes % (A) 6 %; Neutrophils % (A) 76 %; WBC 5.3 k/uL (3.8-10.6); WBC (Perox) 5.49
[2017-01-14 07:31] LABS: Anion Gap 10 mmol/L; Blood Urea Nitrogen 17 mg/dL (9-20); Calcium 7.9 mg/dL (8.4-10.2); Carbon Dioxide 19 mmol/L (22-30); Chloride 110 mmol/L (98-107); Glucose 82 mg/dL (74-99); Non-African American GFR(MDRD) >60 (>60 ml/min/1.73 sqM); Potassium 4.3 mmol/L (3.5-5.1); Sodium 139 mmol/L (137-145)
[2017-01-14] MEDS: amLODIPine 10 MG TAB PO SCH (09:37)
[2017-01-14] MEDS: HEPARIN SODIUM,PORCINE 5,000 UNIT/ML 1 ML VIAL SQ SCH ×2 (09:37→16:18)
[2017-01-14] MEDS: ASPIRIN 325 MG TAB PO SCH (09:37)
--- NOTE | 2017-01-14 12:34 | P.PN ---
Subjective The patient is an 81-year-old man admitted to the hospital with altered mental status. He was admitted with a diagnosis of bronchitis and dehydration area and the patient is still confused. He is able to say his name but has poor attention and focus. There is no obvious dysarthria or aphasia when he does speak. He had a CT of the brain which did not show any acute changes. Objective - Vital Signs Vital signs: Vital Signs Temp 96.9 F L 01/14/17 11:15 Pulse 71 01/14/17 11:15 Resp 18 01/14/17 11:15 BP 102/57 01/14/17 11:15 Pulse Ox 96 01/14/17 11:15 Intake & Output 01/13/17 01/14/17 01/14/17 18:59 06:59 18:59 Intake Total 550 Output Total 500 Balance 50 Weight 75 kg Intake: IV 550 Sodium Chloride 0.45% 1, 550 000 ml @ 50 mls/hr IV . Q20H [facility] Rx#:[id number] Output: Urine 500 Other: # Voids 1 1 - Constitutional General appearance: Present: average body habitus - EENT Eyes: Present: PERRLA ENT: Present: hearing grossly normal - Respiratory Respiratory: bilateral: CTA - Cardiovascular Rhythm: regular - Neurologic Neurologic Comment(s): Pupils were equal and reactive. It was difficult to check other cranial nerves. He seemed to have hearing intact and tongue midline on mental status exam he was oriented x 1. He seemed to be moving all 4 extremities equally. - Labs CBC & Chem 7: 01/14/17 06:27 01/14/17 06:27 Labs: Abnormal Lab Results - Last 24 Hours (Table) 01/14/17 01/14/17 Range/Units 06:27 06:27 RBC 3.60 L (4.30-5.90) m/uL Hgb 10.9 L (13.0-17.5) gm/dL Hct 33.1 L (39.0-53.0) % Lymphocytes # 0.7 L (1.0-4.8) k/uL Chloride 110 H (98-107) mmol/L Carbon Dioxide 19 L (22-30) mmol/L Calcium 7.9 L (8.4-10.2) mg/dL Microbiology - Last 24 Hours (Table) 01/11/17 14:16 Blood Culture - Preliminary Blood No Growth after 48 hours Assessment and Plan (1) Altered mental status Status: Acute Code(s): R41.82 - ALTERED MENTAL STATUS, UNSPECIFIED (2) Bronchitis Status: Acute Code(s): J40 - BRONCHITIS, NOT SPECIFIED ACUTE OR CHRONIC (3) Delirium due to general medical condition Status: Acute Code(s): F05 - DELIRIUM DUE TO KNOWN PHYSIOLOGICAL CONDITION (4) Dehydration Status: Acute Code(s): E86.0 - DEHYDRATION Plan: The patient is an 81-year-old man with history of dementia who has somewhat delirium now due to general medical condition. He T brain was unremarkable. We 'll have an EEG. He is on antibiotic
--- NOTE | 2017-01-14 12:59 | P.PN ---
Subjective Mr. Parham is an 81-year-old male with the PMH of Osteoarthritis, Dementia was brought in by EMS for evaluation of altered mental status. Patient was found upon awaking earlier today to be confused, He is normally awake alert oriented 4 but he was only alert and oriented 1. No reports of fever no reports of trauma he has a cough or phlegm possibly green colored. No new medications. Pt is a very poor historian, He did not talk with me today. As per [facility] nursing staff report he does not talk with new people, whose voices he cannot recognize. ROS - could not be done due to pt's poor mentation Objective - Vital Signs Vital signs: Vital Signs Temp 97.6 F 01/13/17 16:00 Pulse 82 01/13/17 16:00 Resp 18 01/13/17 16:00 BP 138/62 01/13/17 16:00 Pulse Ox 99 01/13/17 16:00 Intake & Output 01/13/17 01/13/17 01/14/17 06:59 18:59 06:59 Intake Total 640 Output Total 100 Balance 540 Weight 76.5 kg Intake: Intake, IV Titration 400 Amount Sodium Chloride 0.45% 1, 400 000 ml @ 50 mls/hr IV . Q20H [facility] Rx#:[id number] Oral 240 Output: Urine 100 Other: # Voids 2 - Exam He is a well-developed well-nourished awake alert but confused male Limitations: altered mental status General appearance: alert, lethargic Head exam: Present: atraumatic, normocephalic, normal inspection Eye exam: Present: normal appearance, PERRL, EOMI. Absent: scleral icterus, conjunctival injection, periorbital swelling ENT exam: Present: mucous membranes dry Neck exam: Present: normal inspection. Absent: tenderness, meningismus, lymphadenopathy Respiratory exam: Present: normal lung sounds bilaterally. Absent: respiratory distress, wheezes, rales, rhonchi, stridor Cardiovascular Exam: Present: regular rate, normal rhythm, normal heart sounds. Absent: systolic murmur, diastolic murmur, rubs, gallop, clicks GI/Abdominal exam: Present: soft, normal bowel sounds. Absent: distended, tenderness, guarding, rebound, rigid Extremities exam: Present: normal inspection, full ROM, normal capillary refill. Absent: tenderness, pedal edema, joint swelling, calf tenderness Back exam: Present: normal inspection Neurological exam: he opens his eyes on calling hsi name but does not talk Psychiatric exam: Present: flat affect Skin exam: Present: warm, dry, intact, normal color. Absent: rash - Labs CBC & Chem 7: 01/13/17 06:19 01/13/17 06:19 Labs: Abnormal Lab Results - Last 24 Hours (Table) 01/13/17 01/13/17 Range/Units 06:19 06:19 RBC 3.59 L (4.30-5.90) m/uL Hgb 11.2 L (13.0-17.5) gm/dL Hct 33.1 L (39.0-53.0) % Lymphocytes # 0.7 L (1.0-4.8) k/uL Chloride 110 H (98-107) mmol/L Carbon Dioxide 20 L (22-30) mmol/L Calcium 8.0 L (8.4-10.2) mg/dL Microbiology - Last 24 Hours (Table) 01/11/17 14:16 Blood Culture - Preliminary Blood No Growth after 48 hours Assessment and Plan Plan: 81-year-old man who was brought into the emergency room with confusion. He is oriented to person only. He is able to follow some simple commands but is generally confused and appears to be in a delirium. He is admitted to the hospital with bronchitis and dehydration. He had a CT of the brain which did not show any acute findings. He did not have any focal motor deficits on examination. As per Neurology there is questionable left facial droop, so recommend a stroke workup including carotid ultrasound and echocardiogram and an EEG. ASSESSMENT 1. Encephalopathy - most likely due to infection and also a component of dehydration 2. Dehydration 3. Acute Bronchitis 4. Delirium 5. Dementia 6. Osteoarthritis PLAN- C/w IV fluids and Abx in the form of Levofloxacin and c/w the rest of his home medication regimen.He si getting a stroke work up as per Neurology recs. Further recs to follow depending on the progress of the pt. He is a NO CODE.
--- NOTE | 2017-01-14 21:48 | P.PN ---
Subjective Mr. Parham is an 81-year-old male with the PMH of Osteoarthritis, Dementia was brought in by EMS for evaluation of altered mental status. Patient was found upon awaking earlier today to be confused, He is normally awake alert oriented 4 but he was only alert and oriented 1. No reports of fever no reports of trauma he has a cough or phlegm possibly green colored. No new medications. Pt is a very poor historian. On 01/13/17 - He did not talk with me today. As per the nursing staff report he does not talk with new people, whose voices he cannot recognize. On 01/14/2017 - patient was sleeping and woke up on calling his name. He appears to be much more alert than yesterday. He does not have any active complaints. REVIEW OF SYSTEMS: RESPIRATORY: No cough, No SOB, No chest discomfort. : No dysuria or hematuria CARDIAC: No chest pain , shortness of breath , paroxysmal nocturnal dyspnea GI: No abdominal pain, Nausea or vomiting. No constipation or diarrhea. Objective - Vital Signs Vital signs: Vital Signs Temp 96.9 F L 01/14/17 11:15 Pulse 71 01/14/17 11:15 Resp 18 01/14/17 11:15 BP 102/57 01/14/17 11:15 Pulse Ox 96 01/14/17 11:15 Intake & Output 01/13/17 01/14/17 01/14/17 18:59 06:59 18:59 Intake Total 550 Output Total 500 Balance 50 Weight 75 kg Intake: IV 550 Sodium Chloride 0.45% 1, 550 000 ml @ 50 mls/hr IV . Q20H [facility] Rx#:[id number] Output: Urine 500 Other: # Voids 1 1 - Exam He is a well-developed well-nourished awake alert but confused male Limitations: altered mental status General appearance: alert, lethargic Head exam: Present: atraumatic, normocephalic, normal inspection Eye exam: Present: normal appearance, PERRL, EOMI. Absent: scleral icterus, conjunctival injection, periorbital swelling ENT exam: Present: mucous membranes dry Neck exam: Present: normal inspection. Absent: tenderness, meningismus, lymphadenopathy Respiratory exam: Present: normal lung sounds bilaterally. Absent: respiratory distress, wheezes, rales, rhonchi, stridor Cardiovascular Exam: Present: regular rate, normal rhythm, normal heart sounds. Absent: systolic murmur, diastolic murmur, rubs, gallop, clicks GI/Abdominal exam: Present: soft, normal bowel sounds. Absent: distended, tenderness, guarding, rebound, rigid Extremities exam: Present: normal inspection, full ROM, normal capillary refill. Absent: tenderness, pedal edema, joint swelling, calf tenderness Back exam: Present: normal inspection Neurological exam: No focal deficits Psychiatric exam: Present: flat affect Skin exam: Present: warm, dry, intact, normal color. Absent: rash - Labs CBC & Chem 7: 01/14/17 06:27 01/14/17 06:27 Labs: Abnormal Lab Results - Last 24 Hours (Table) 01/14/17 01/14/17 Range/Units 06:27 06:27 RBC 3.60 L (4.30-5.90) m/uL Hgb 10.9 L (13.0-17.5) gm/dL Hct 33.1 L (39.0-53.0) % Lymphocytes # 0.7 L (1.0-4.8) k/uL Chloride 110 H (98-107) mmol/L Carbon Dioxide 19 L (22-30) mmol/L Calcium 7.9 L (8.4-10.2) mg/dL Microbiology - Last 24 Hours (Table) 01/11/17 14:16 Blood Culture - Preliminary Blood No Growth after 48 hours Assessment and Plan Plan: 81-year-old man who was brought into the emergency room with confusion. He is oriented to person only. He is able to follow some simple commands but is generally confused and appears to be in a delirium. He is admitted to the hospital with bronchitis and dehydration. He had a CT of the brain which did not show any acute findings. He did not have any focal motor deficits on examination. As per Neurology there is questionable left facial droop, so recommend a stroke workup including carotid ultrasound and echocardiogram and an EEG. ASSESSMENT 1. Encephalopathy - most likely due to infection and also a component of dehydration 2. Dehydration 3. Acute Bronchitis 4. Delirium 5. Dementia 6. Osteoarthritis PLAN- discontinue IV fluids and continue Abx in the form of Levofloxacin and c/ w the rest of his home medication regimen.He is getting a stroke work up as per Neurology recs. family service caseworker on board for possible long-term placement Further recs to follow depending on the progress of the pt. He is a NO CODE.
[2017-01-15] MEDS: LEVOFLOXACIN 500 MG TAB PO SCH ×2 (00:29→23:28)
[2017-01-15] MEDS: HEPARIN SODIUM,PORCINE 5,000 UNIT/ML 1 ML VIAL SQ SCH ×4 (00:30→23:28)
[2017-01-15] MEDS: ASPIRIN 325 MG TAB PO SCH (08:57)
[2017-01-15] MEDS: amLODIPine 10 MG TAB PO SCH (08:57)
--- NOTE | 2017-01-15 10:52 | EEG ---
ELECTROENCEPHALOGRAPHIC EXAMINATION REPORT DATE OF SERVICE: 01/12/2017 INDICATION FOR EXAMINATION: This patient is a 81-year-old male being evaluated for altered mental status and confusion. Patient has history of dementia. AGE: 81. EEG FINDINGS: A routine 21-channel awake, digital EEG recording was accomplished utilizing the 10-20 international system with bipolar and referential montages. The background activity in the most alert, resting state consists of a low to medium amplitude, poorly developed and poorly sustained 5- 6 Hz activity over the posterior head regions. This posterior rhythm attenuates minimally to eye opening. There is a small amount of low amplitude 18-20 Hz beta activity seen maximally over the anterior head regions. Muscle and movement artifact was observed on a few occasions during the tracing. Hyperventilation was not performed. Photic stimulation at flash frequencies of 2-30 Hz produced a minimal occipital driving response. No epileptiform discharges were seen. IMPRESSION: This EEG gives evidence of a severe widespread diffuse disturbance in cerebral function. The EEG failed to reveal any focal, lateralized or epileptiform abnormalities. Clinical correlation is recommended. [facility]
--- NOTE | 2017-01-15 11:00 | PN ---
CHIEF COMPLAINT: Altered mental status. HISTORY OF PRESENT ILLNESS: Mr. Parham is an 81 year old male with known history of dementia and osteoarthritis as well as back pain, was brought to the hospital with altered mental status. The patient was found upon awakening earlier today, earlier on admission to be very confused and has been hallucinating and trying to catch something with ( ) which is not there and also has been talking to himself and was brought to the hospital by his family. The patient otherwise alert and oriented times four. The patient is usually alert and oriented. Apparently the patient did have a cough with sputum production last Monday. The patient felt better on Monday and ate his breakfast and pizza as well. On Monday, he was found to be anxious and hallucinating and felt very tired. Otherwise, the patient does not have any fever. No complaints of nausea, vomiting and abdominal pain. The patient was also found to have a facial droop. Due to altered mental status and generalized weakness, the patient was brought to the hospital for further evaluation. The patient had a CT scan of the head which showed age related atrophic and chronic small vessel ischemic change without acute intracranial process. Chest x-ray showed no evidence of acute pulmonary disease. The patient had ( ). Neurology has been consulted and the patient underwent stroke work up including carotid duplex and echocardiogram. Neurology has seen the patient. Complete review of systems could not be obtained from the patient. PAST MEDICAL HISTORY: Dementia, osteoarthritis and back pain. PAST SURGICAL HISTORY: Unable to obtain from the patient. PSYCHOSOCIAL HISTORY: No history of psychosocial history. SOCIAL HISTORY: The patient is a never a smoker. No alcohol use. Denied any drugs or IVDA as per the family at bedside. PAST MEDICAL HISTORY/FAMILY HISTORY: Could not be obtained from the patient. HOME MEDICATIONS: Naprosyn. ALLERGIES: No known drug allergies. PHYSICAL EXAMINATION: 81 year old male lying in bed awake, alert and currently could not provide any history. VITALS: Blood pressure is 200/107. Pulse 69. Respiratory rate 18. Temperature afebrile. Pulse ox 97% on room air. HEENT: Conjunctivae normal. NECK: No JVD. CVS: S1, S2 heard. No murmurs. No gallops. LUNGS: Bilateral air entry is present. No wheezing. No crackles. The patient does have rhonchi in the upper airways. ABDOMEN: Soft, nontender. Bowel sounds present. SILVERER: Awake and alert, not oriented and able to move all his extremities. No evidence of facial droop noted. EXTREMITIES: no edema. Pulses palpable bilaterally. No clubbing or cyanosis. PSYCHIATRIC: Cooperative. Could not be assessed completely. LABORATORY DATA: WBC 6.3, hemoglobin 12.4. Platelets 177. INR 1.0. Sodium 142. Potassium 4.8. Chloride 110. Bicarb is 21. BUN 29, creatinine 1.2. Magnesium 2.4, ( ) 6.2. UA negative for any infection. LDL 92. Urine toxicology is negative. Chest x-ray no acute cardiopulmonary process. IMPRESSION: 1. Altered mental status with possible metabolic encephalopathy. 2. cute tracheobronchitis. 3. Possible dementia with behavioral change. 4. Dehydration due to elevated BUN level. 5. Uncontrolled hypertension. 6. Deep vein thrombosis prophylaxis. DISCUSSION AND PLAN: The patient will be continued on IV fluids. We will change the IV fluids to half normal saline and continue with Levofloxacin and aspirin has been added. We will add blood pressure medication in the form of Amlodipine and follow up closely. Further recommendations based on clinical course. Prognosis guarded. MTDD
--- NOTE | 2017-01-15 21:58 | P.PN ---
Subjective Mr. Parham is an 81-year-old male with the PMH of Osteoarthritis, Dementia was brought in by EMS for evaluation of altered mental status. Patient was found upon awaking earlier today to be confused, He is normally awake alert oriented 4 but he was only alert and oriented 1. No reports of fever no reports of trauma he has a cough or phlegm possibly green colored. No new medications. Pt is a very poor historian. On 01/13/17 - He did not talk with me today. As per the nursing staff report he does not talk with new people, whose voices he cannot recognize. On 01/14/2017 - patient was sleeping and woke up on calling his name. He appears to be much more alert than yesterday. He does not have any active complaints. On 01/15/17 - pt eating his lunch with his family members at the bed side. His mentation is back to his base line. REVIEW OF SYSTEMS: RESPIRATORY: No cough, No SOB, No chest discomfort. : No dysuria or hematuria CARDIAC: No chest pain , shortness of breath , paroxysmal nocturnal dyspnea GI: No abdominal pain, Nausea or vomiting. No constipation or diarrhea. Objective - Vital Signs Vital signs: Vital Signs Temp 98.1 F 01/15/17 07:00 Pulse 67 01/15/17 07:00 Resp 20 01/15/17 07:00 BP 164/96 01/15/17 07:00 Pulse Ox 99 01/15/17 07:00 Intake & Output 01/14/17 01/15/17 01/15/17 18:59 06:59 18:59 Intake Total 100 Output Total 400 Balance -300 Intake: Oral 100 Output: Urine 400 Other: Voiding Method Incontinent Incontinent # Voids 1 2 - Exam He is a well-developed well-nourished awake alert General appearance: alert Head exam: Present: atraumatic, normocephalic, normal inspection Eye exam: Present: normal appearance, PERRL, EOMI. Absent: scleral icterus, conjunctival injection, periorbital swelling ENT exam: Present: mucous membranes dry Neck exam: Present: normal inspection. Absent: tenderness, meningismus, lymphadenopathy Respiratory exam: Present: normal lung sounds bilaterally. Absent: respiratory distress, wheezes, rales, rhonchi, stridor Cardiovascular Exam: Present: regular rate, normal rhythm, normal heart sounds. Absent: systolic murmur, diastolic murmur, rubs, gallop, clicks GI/Abdominal exam: Present: soft, normal bowel sounds. Absent: distended, tenderness, guarding, rebound, rigid Extremities exam: Present: normal inspection, full ROM, normal capillary refill. Absent: tenderness, pedal edema, joint swelling, calf tenderness Neurological exam: No focal deficits Psychiatric exam: Present:normal Skin exam: Present: warm, dry, intact, normal color. Absent: rash - Labs CBC & Chem 7: 01/14/17 06:27 01/14/17 06:27 Labs: Microbiology - Last 24 Hours (Table) 01/11/17 14:16 Blood Culture - Preliminary Blood No Growth after 72 hours Assessment and Plan Plan: 81-year-old man who was brought into the emergency room with confusion. He is oriented to person only. He is able to follow some simple commands but is generally confused and appears to be in a delirium. He is admitted to the hospital with bronchitis and dehydration. He had a CT of the brain which did not show any acute findings. He did not have any focal motor deficits on examination. As per Neurology there is questionable left facial droop, so recommend a stroke workup including carotid ultrasound and echocardiogram and an EEG. ASSESSMENT 1. Encephalopathy - most likely due to infection and also a component of dehydration 2. Dehydration 3. Acute Bronchitis 4. Delirium 5. Dementia 6. Osteoarthritis PLAN- discontinue IV fluids and continue Abx in the form of Levofloxacin and c/ w the rest of his home medication regimen. Stroke work up as per Neurology recs - EEG , Echo - WNL . mental health worker on board for possible group home placement. Further recs to follow depending on the progress of the pt. He is a NO CODE.
[2017-01-16 07:38] VITALS: BP 138/82; PULSE 68; RESP 18; TEMP 96.8
[2017-01-16] MEDS: amLODIPine 10 MG TAB PO SCH (08:10)
[2017-01-16] MEDS: ASPIRIN 325 MG TAB PO SCH (08:10)
[2017-01-16] MEDS: HEPARIN SODIUM,PORCINE 5,000 UNIT/ML 1 ML VIAL SQ SCH ×2 (08:10→15:32)
[2017-01-16 11:47] VITALS: BMI 20.1
--- NOTE | 2017-01-16 14:21 | P.DS ---
Providers Date of admission: 01/11/17 16:14 Expected date of discharge: 01/16/17 Attending physician: Juve Guthrie Consults: 01/11/17 16:15 Consult Physician Routine Consulting Provider: Avril Kelley Consult Reason/Comments: Altered mental status Do you want consulting provider notified?: Yes Primary care physician: Thad Romo [facility] Course: this gentleman was admitted by my colleague Dr. Ortiz. She noted altered mental status felt to be a combination of dehydration and acute bronchitis leading to acute delirium. Patient had a neurological workup done by Jaleesa Angeles, in which patient's computed tomography scan of the brain showed diffuse age-related atrophy, EEG showed diffuse brain dysfunction, carotidDoppler did not show any critical stenosis. Talk to the nurse today patient eating about 50% of his meals, is a 2 person full assist, follows simple commands. Neurology okayed the patient to be discharged. On examination: Lungs-clear to auscultation Cardiovascular-first seconds are normal Psychiatry-patient housing simple questions Neurological-moving all 4 limbs Patient Condition at Discharge: Stable Plan - Discharge Summary New Discharge Prescriptions: New Acetaminophen Tab [Tylenol] 650 mg PO Q6H PRN #1 tablet PRN Reason: Pain amLODIPine [Norvasc] 10 mg PO DAILY tab Aspirin 81 mg PO DAILY #1 chewable QUEtiapine [SEROquel] 25 mg PO HS #10 tab Discontinued Naproxen Sodium [Aleve] 440 - 660 mg PO BID PRN PRN Reason: Pain Discharge Medication List Acetaminophen Tab [Tylenol] 650 mg PO Q6H PRN #1 tablet 01/16/17 [Rx] Aspirin 81 mg PO DAILY #1 chewable 01/16/17 [Rx] QUEtiapine [SEROquel] 25 mg PO HS #10 tab 01/16/17 [Rx] amLODIPine [Norvasc] 10 mg PO DAILY tab 01/16/17 [Rx] Follow up Appointment(s)/Referral(s): Thad Romo MD [Primary Care Provider] - As Needed Isidro Valle MD [STAFF PHYSICIAN] - 01/17/17 Patient Instructions/Handouts: Pneumonia (DC) Activity/Diet/Wound Care/Special [facility]ructions[facility] [place] Discharge Disposition: TRANSFER TO SNF/ECF
--- NOTE | 2017-01-16 14:48 | FL ---
EXAMINATION TYPE: FL barium swallow w video DATE OF EXAM: 01/16/2017 COMPARISON: NONE HISTORY: Dysphasia TECHNIQUE: Fluoroscopy. FINDINGS: Fluoroscopic guidance was provided for the procedure performed in conjunction with [place] [facility] [place]. Please see complete report forthcoming from the Speech Pathology departmen t. Various consistencies from thin liquid to solids were administered. Multiple episodes of penetration occurred with thin liquids. No aspiration was evident. Some mild tra nsient penetration was with nectar thick liquids. There is some hesitancy of swallowing with solids a nd applesauce consistency. No significant pooling was observed in the vallecula. IMPRESSION: 1. Penetration without aspiration of thin liquids and transiently with some episodes of nectar thick liquids.
== END 2017-01-16 15:59 | DRG 202 ==
LOC: EC 13:50 → 6SEL 16:14 → 4MS4W 01-14 13:28
PROVIDERS: ADMIT Hospitalist; ATTEND Hospitalist
DX: J20.9 Acute bronchitis, unspecified (principal); F05 Delirium due to known physiological condition; F03.91 Unspecified dementia, unspecified severity, with behavioral disturbance; E86.0 Dehydration; M19.91 Primary osteoarthritis, unspecified site; I10 Essential (primary) hypertension; R29.810 Facial weakness; M54.9 Dorsalgia, unspecified; Z66 Do not resuscitate; Z87.891 Personal history of nicotine dependence
CPT/HCPCS: 36415; 51701; 70450; 71020; 74230; 80048; 80053; 80061; 80306; 81001; 82140; 82550; 82553; 83605; 83735; 84484; 85025; 85610; 85730; 87040; 93005; 93306; 93880; 94760; 95819; 96361; 96365; 96375; 99285